=== PATIENT | male | born 1965 | race Caucasian/White ===

== ENCOUNTER 2022-11-19 14:03 | Emergency (ER) | payer OTHER ==
[2022-11-19] MEDS ORDERED: methylPREDNISolone Sodium Succinate 125 MG/2 ML SDV IVPUSH ONE (14:19)
[2022-11-19] MEDS ORDERED: Famotidine 20 MG/2 ML SDV IVPUSH ONE (14:19)
== END 2022-11-19 16:25 | disposition home or self-care (01) ==
LOC: JP.ED 14:03
DX: S80.861A Insect bite (nonvenomous), right lower leg, initial encounter (principal); Z91.018 Allergy to other foods; Z91.038 Other insect allergy status; W57.XXXA Bitten or stung by nonvenomous insect and other nonvenomous arthropods, initial encounter
CPT/HCPCS: 96374; 96375; 99284; J2930; J3490